=== PATIENT | female | born 1985 | race African-American/Black ===

== ENCOUNTER 2022-09-26 10:27 | Emergency (ER) | payer OTHER ==
[~2022-09-26] VITALS: Ht 167.6 cm; Wt 68.0 kg
[2022-09-26] MEDS ORDERED: ACETAMINOPHEN 325MG TABLET PO STA (12:31)
[2022-09-26] MEDS ORDERED: TETRACAINE 0.5% OPHTH DROPS 4ML RIGHTEYE ONE (12:45)
[2022-09-26] MEDS ORDERED: FLUORESCEIN SODIUM 1MG/STRIP RIGHTEYE ONE (12:45)
[2022-09-26] MEDS ORDERED: BALANCED SALT IRRIG SOLN 15ML IR ONE (12:45)
[2022-09-26] MEDS ORDERED: ACETAMINOPHEN 325MG TABLET PO NR (14:45)
[2022-09-26] MEDS ORDERED: BALANCED SALT IRRIG SOLN 15ML IR NR (14:45)
[2022-09-26] MEDS ORDERED: FLUORESCEIN SODIUM 1MG/STRIP RIGHTEYE NR (14:45)
[2022-09-26] MEDS ORDERED: TETRACAINE 0.5% OPHTH DROPS 4ML RIGHTEYE NR (14:45)
[2022-09-26] MEDS ORDERED: T3 PO (15:55)
[2022-09-26] MEDS ORDERED: DOXY100T28 PO (15:55)
[2022-09-26] MEDS ORDERED: CIPR2.5D13 EACHEYE (15:55)
[2022-09-26 16:53] VITALS: BP 138/87
== END 2022-09-26 16:56 | disposition home or self-care (01) ==
LOC: ER 10:38
DX: S02.2XXA Fracture of nasal bones, initial encounter for closed fracture (principal); S00.83XA Contusion of other part of head, initial encounter; H10.023 Other mucopurulent conjunctivitis, bilateral; H01.003 Unspecified blepharitis right eye, unspecified eyelid; J45.909 Unspecified asthma, uncomplicated; Y08.89XA Assault by other specified means, initial encounter; Y93.89 Activity, other specified; Y92.89 Other specified places as the place of occurrence of the external cause; Y99.8 Other external cause status
CPT/HCPCS: 70480; 81025; 99284

== ENCOUNTER 2023-02-21 15:53 | Emergency (ER) | payer OTHER ==
[~2023-02-21] VITALS: Ht 167.6 cm; Wt 71.0 kg
[~2023-02-21 15:53] MED LIST: CIPR2.5D20 EACHEYE; DOXY100T28 PO; T3 PO
[2023-02-21 16:29] VITALS: BP 104/68; PULSE 100; RESP 16; TEMP 98.9; O2SAT 100
[2023-02-21 16:52] LABS: CLARITY URINE CLEAR (CLEAR); COLOR URINE YELLOW (YELLOW); KETONES URINE NEGATIVE (NEGATIVE); LEUKOCYTE ESTERASE URINE NEGATIVE (NEGATIVE); NITRITE URINE NEGATIVE (NEGATIVE); OCCULT BLOOD URINE 3+ (NEGATIVE); PH URINE 6.5 (4.5-8.0); PROTEIN URINE NEGATIVE (NEGATIVE); SPECIFIC GRAVITY URINE 1.018 (1.005-1.030); UROBILINOGEN URINE 0.2 E.U./dL (0.2-1.0)
[2023-02-21 17:11] LABS: BASOPHILS % 0.7 % (0.0-2.0); EOSINOPHILS % 1.3 % (0.0-5.0); HEMATOCRIT. 39.8 % (36.0-48.0); HEMOGLOBIN. 13.7 g/dL (12.0-16.0); LYMPHOCYTES % 31.1 % (20.0-50.0); MEAN CORPUSCULAR HEMOGLOBIN 34.9 pg (28.0-32.0); MEAN CORPUSCULAR VOLUME 101.2 fL (81.0-99.0); MEAN PLATELET VOLUME 7.5 fl (7.4-10.4); MONOCYTES % 6.9 % (2.0-8.0); PLATELET 241 x1000/uL (130-400); RED BLOOD CELL COUNT 3.93 mill/uL (4.2-5.4); RED CELL DISTRIBUTION WIDTH 13.1 % (11.6-14.6)
[2023-02-21 17:26] LABS: CHLORIDE 107 mEq/L (98-107)
[2023-02-21 17:28] LABS: HCG SCREEN POSITIVE
[2023-02-21] MEDS ORDERED: ACETAMINOPHEN 325MG TABLET PO ONE ×2 (17:45→20:00)
[2023-02-21 17:52] LABS: B-HCG QUANTITATIVE 5463 mIU/mL (<3)
[2023-02-21] MEDS ORDERED: TOPUD PO (18:07)
[2023-02-22] MEDS ORDERED: ONDA4TAB50 PO (16:09)
[2023-02-22] MEDS ORDERED: IBUP-2030 PO (16:09)
[2023-02-22] MEDS ORDERED: OXYC-100 MT (16:26)
== END 2023-02-21 19:59 | disposition home or self-care (01) ==
LOC: ER 15:53
DX: O20.0 Threatened abortion (principal); Z3A.01 Less than 8 weeks gestation of pregnancy
CPT/HCPCS: 36415; 76801; 80053; 81003; 81025; 84702; 84703; 85025; 86850; 86900; 99284

== ENCOUNTER 2023-02-22 12:26 | Emergency (ER) | payer MEDICAID, OTHER ==
[~2023-02-22] VITALS: Ht 167.6 cm; Wt 71.0 kg
[~2023-02-22 12:26] MED LIST changes: +TOPUD PO
[2023-02-22 12:36] VITALS: O2SAT 100
[2023-02-22] MEDS ORDERED: ONDANSETRON 4MG ODT PO ONE (12:45)
[2023-02-22] MEDS ORDERED: KETOROLAC 30MG/ML VIAL IV STA (14:58)
[2023-02-22] MEDS ORDERED: SODIUM CHLORIDE 0.9% 1,000 ML IV ONE (15:00)
[2023-02-22] MEDS ORDERED: ONDANSETRON HCL 4MG/2ML INJ IV ONE (15:45)
[2023-02-22 15:50] LABS: BASOPHILS % 0.2 % (0.0-2.0); HEMATOCRIT. 39.4 % (36.0-48.0); HEMOGLOBIN. 13.8 g/dL (12.0-16.0); MEAN CORPUSCULAR HEMOGLOBIN 35.3 pg (28.0-32.0); MEAN CORPUSCULAR VOLUME 100.9 fL (81.0-99.0); MEAN PLATELET VOLUME 7.9 fl (7.4-10.4); MONOCYTES % 3.4 % (2.0-8.0); NEUTROPHILS % 88.4 % (40.0-76.0); PLATELET 243 x1000/uL (130-400); RED BLOOD CELL COUNT 3.91 mill/uL (4.2-5.4); RED CELL DISTRIBUTION WIDTH 13.1 % (11.6-14.6)
[2023-02-22 15:59] LABS: CHLORIDE 114 mEq/L (98-107)
[2023-02-22] MEDS ORDERED: IBUP-2030 PO (16:09)
[2023-02-22] MEDS ORDERED: ONDA4TAB50 PO (16:09)
[2023-02-22] MEDS ORDERED: OXYC-100 MT (16:26)
[2023-02-22 16:30] LABS: B-HCG QUANTITATIVE 3401 mIU/mL (<3)
[2023-02-22] MEDS ORDERED: OXYCODONE HCL/ACETAMINOPHEN 5/325MG TABLET PO ONE (16:30)
[2023-02-22 16:45] VITALS: BP 119/82; PULSE 76; RESP 16; TEMP 98.4
== END 2023-02-22 17:27 | disposition home or self-care (01) ==
LOC: ER 12:44
DX: O03.9 Complete or unspecified spontaneous abortion without complication (principal); Z3A.01 Less than 8 weeks gestation of pregnancy; Z79.899 Other long term (current) drug therapy
CPT/HCPCS: 99285; 96374; 76830; 76856; 96361; 96375; 80053; 84702; 85025; 86850; 86900; 86901; 36415; J1885; J2405; J7030

== ENCOUNTER 2023-04-17 10:17 | Emergency (ER) | payer MEDICAID ==
[~2023-04-17] VITALS: Ht 152.4 cm; Wt 68.5 kg
[~2023-04-17 10:17] MED LIST changes: +IBUP-2030 PO; +ONDA4TAB50 PO; +OXYC-100 MT
[2023-04-17 10:28] VITALS: BP 127/73; PULSE 57; TEMP 98.1; O2SAT 100
[2023-04-17 11:06] LABS: BASOPHILS % 0.2 % (0.0-2.0); HEMATOCRIT. 44.6 % (36.0-48.0); HEMOGLOBIN. 15.5 g/dL (12.0-16.0); LYMPHOCYTES % 9.6 % (20.0-50.0); MEAN CORPUSCULAR HGB CONC 34.8 g/dL (31.0-37.0); MEAN CORPUSCULAR VOLUME 97.8 fL (81.0-99.0); MEAN PLATELET VOLUME 8.4 fl (7.4-10.4); NEUTROPHILS % 87.2 % (40.0-76.0); PLATELET 245 x1000/uL (130-400); RED BLOOD CELL COUNT 4.57 mill/uL (4.2-5.4); RED CELL DISTRIBUTION WIDTH 12.9 % (11.6-14.6); WHITE BLOOD COUNT 9.1 x1000/uL (4.5-11.0)
[2023-04-17 11:10] LABS: CHLORIDE 105 mEq/L (98-107); INDEX HEMOLYSI 1 (1-3); INDEX ICTERIC 1 (1-4); INDEX LIPEMIC 1 (1-3); POTASSIUM 3.4 mEq/L (3.5-5.1); SODIUM 139 mEq/L (136-145)
[2023-04-17 11:31] LABS: ALANINE AMINOTRANSFERASE 29 IU/L (13-61); ALBUMIN 4.6 g/dL (3.4-5.0); ASPARTATE AMINOTRANSFERASE 19 IU/L (15-37); BILIRUBIN TOTAL 1.8 mg/dL (0.1-1.0); CALCIUM 9.6 mg/dL (8.5-10.1); CARBON DIOXIDE 25 mEq/L (21-32); CREATININE 0.9 mg/dL (0.6-1.3); GLUCOSE 134 mg/dL (70-105); PROTEIN TOTAL 8.6 g/dL (6.0-8.3); UREA NITROGEN BLOOD 14 mg/dL (7-21)
[2023-04-17] MEDS ORDERED: ONDANSETRON 4MG ODT PO ONE (12:30)
[2023-04-17] MEDS: ONDANSETRON 4MG ODT PO NR ×2 (14:12→15:48)
[2023-04-17 17:08] LABS: CLARITY URINE CLOUDY (CLEAR); COLOR URINE DARK YELLOW (YELLOW); GLUCOSE URINE NEGATIVE (NEGATIVE); KETONES URINE 2+ (NEGATIVE); LEUKOCYTE ESTERASE URINE NEGATIVE (NEGATIVE); NITRITE URINE NEGATIVE (NEGATIVE); OCCULT BLOOD URINE 3+ (NEGATIVE); PH URINE 5.5 (4.5-8.0); PROTEIN URINE 3+ (NEGATIVE); SPECIFIC GRAVITY URINE 1.034 (1.005-1.030)
[2023-04-17 17:11] LABS: BACTERIA URINE 1+; SQUAMOUS EPITHELIAL CELL URINE 2+ /lpf (RARE/1+); YEAST URINE NONE SEEN
== END 2023-04-17 16:27 | disposition left against medical advice (07) ==
LOC: ER 10:17
DX: R11.2 Nausea with vomiting, unspecified (principal); I49.9 Cardiac arrhythmia, unspecified
CPT/HCPCS: 99284; 80053; 81003; 81025; 83690; 85025; 36415; 93005; Q0162

== ENCOUNTER 2023-07-19 15:22 | Emergency (ER) | payer MEDICAID ==
[~2023-07-19] VITALS: Ht 167.6 cm; Wt 71.0 kg
[2023-07-19 15:30] VITALS: PULSE 119
[2023-07-19 15:36] VITALS: BP 138/67; RESP 18; TEMP 98.1; O2SAT 99
[2023-07-19 16:02] LABS: BASOPHILS % 0.3 % (0.0-2.0); HEMATOCRIT. 45.2 % (36.0-48.0); HEMOGLOBIN. 15.6 g/dL (12.0-16.0); LYMPHOCYTES % 12.6 % (20.0-50.0); MEAN CORPUSCULAR HEMOGLOBIN 33.7 pg (28.0-32.0); MEAN CORPUSCULAR HGB CONC 34.5 g/dL (31.0-37.0); MEAN CORPUSCULAR VOLUME 97.8 fL (81.0-99.0); MEAN PLATELET VOLUME 8.3 fl (7.4-10.4); MONOCYTES % 7.5 % (2.0-8.0); NEUTROPHILS % 79.6 % (40.0-76.0); PLATELET 275 x1000/uL (130-400); RED BLOOD CELL COUNT 4.62 mill/uL (4.2-5.4); RED CELL DISTRIBUTION WIDTH 12.7 % (11.6-14.6); WHITE BLOOD COUNT 14.2 x1000/uL (4.5-11.0)
[2023-07-19 16:27] LABS: ALANINE AMINOTRANSFERASE 25 IU/L (10-49); ALBUMIN 5.1 g/dL (3.2-4.8); ASPARTATE AMINOTRANSFERASE 29 IU/L (<34); BILIRUBIN TOTAL 1.6 mg/dL (0.1-1.0); CALCIUM 9.9 mg/dL (8.7-10.4); CARBON DIOXIDE 28 mEq/L (21-32); CHLORIDE 100 mEq/L (98-107); CREATININE 1.3 mg/dL (0.6-1.0); GLUCOSE 110 mg/dL (70-105); POTASSIUM 3.4 mEq/L (3.5-5.1); PROTEIN TOTAL 8.7 g/dL (6.0-8.3); SODIUM 138 mEq/L (136-145); UREA NITROGEN BLOOD 23 mg/dL (9-23)
[2023-07-19 16:34] LABS: CLARITY URINE CLOUDY (CLEAR); COLOR URINE DARK YELLOW (YELLOW); GLUCOSE URINE NEGATIVE (NEGATIVE); KETONES URINE 2+ (NEGATIVE); LEUKOCYTE ESTERASE URINE NEGATIVE (NEGATIVE); NITRITE URINE NEGATIVE (NEGATIVE); OCCULT BLOOD URINE 2+ (NEGATIVE); PH URINE 5.5 (4.5-8.0); PROTEIN URINE 2+ (NEGATIVE); SPECIFIC GRAVITY URINE 1.035 (1.005-1.030)
[2023-07-19 16:57] LABS: BACTERIA URINE NONE SEEN; HYALINE CASTS URINE 0-5 /lpf; SQUAMOUS EPITHELIAL CELL URINE 2+ /lpf (RARE/1+); WBC URINE 0-2 /hpf (0-2)
[2023-07-19] MEDS ORDERED: FAMOTIDINE 20MG TABLET PO ONE (19:00)
[2023-07-19] MEDS ORDERED: MAGNESIUM/ALUMINUM HYDROXIDE/SIMETHICONE 30ML UDC PO ONE (19:00)
[2023-07-19] MEDS ORDERED: ONDANSETRON 4MG ODT PO ONE (19:00)
[2023-07-19] MEDS ORDERED: FAMO-135 MT (20:47)
[2023-07-19] MEDS ORDERED: MAG-55 MT (20:47)
[2023-07-19] MEDS ORDERED: ONDA4TAB50 MT (20:47)
== END 2023-07-20 00:21 | disposition home or self-care (01) ==
LOC: ER 15:22
DX: R11.2 Nausea with vomiting, unspecified (principal); Z88.6 Allergy status to analgesic agent; Z79.899 Other long term (current) drug therapy
CPT/HCPCS: 99284; 80053; 81003; 81025; 83690; 85025; 36415; 93005; Q0162

== ENCOUNTER 2024-03-14 04:27 | Emergency (ER) | payer MEDICAID ==
[~2024-03-14] VITALS: Ht 170.2 cm; Wt 73.0 kg
[~2024-03-14 04:27] MED LIST changes: +FAMO-135 MT; +MAG-55 MT; +ONDA4TAB50 MT
[2024-03-14 04:28] VITALS: O2SAT 99
[2024-03-14] MEDS ORDERED: ACETAMINOPHEN 325MG TABLET PO ONE (05:45)
[2024-03-14] MEDS ORDERED: ONDANSETRON 4MG ODT PO ONE (07:45)
[2024-03-14] MEDS ORDERED: HYDROCODONE/ACETAMINOPHEN 5/325MG TABLET PO ONE (08:00)
[2024-03-14 08:15] VITALS: TEMP 97.8
[2024-03-14] MEDS: HYDROCODONE/ACETAMINOPHEN 5/325MG TABLET PO NR (08:15)
[2024-03-14] MEDS: ACETAMINOPHEN 325MG TABLET PO NR (08:15)
[2024-03-14] MEDS: ONDANSETRON 4MG ODT PO NR (08:15)
[2024-03-14 09:07] LABS: BASOPHILS % 0.2 % (0.0-2.0); DIFFERENTIAL COMMENT 0; HEMATOCRIT. 40.6 % (36.0-48.0); HEMOGLOBIN. 13.8 g/dL (12.0-16.0); LYMPHOCYTES % 9.8 % (20.0-50.0); MEAN CORPUSCULAR HEMOGLOBIN 34.9 pg (28.0-32.0); MEAN CORPUSCULAR HGB CONC 34.1 g/dL (31.0-37.0); MEAN CORPUSCULAR VOLUME 102.4 fL (81.0-99.0); MEAN PLATELET VOLUME 7.9 fl (7.4-10.4); MONOCYTES % 5.1 % (2.0-8.0); NEUTROPHILS % 84.9 % (40.0-76.0); PLATELET 221 x1000/uL (130-400); RED BLOOD CELL COUNT 3.97 mill/uL (4.2-5.4); RED CELL DISTRIBUTION WIDTH 13.1 % (11.6-14.6); WHITE BLOOD COUNT 12.5 x1000/uL (4.5-11.0)
[2024-03-14 09:12] LABS: CHLORIDE 107 mEq/L (98-107); SODIUM 139 mEq/L (136-145)
[2024-03-14 09:13] LABS: CALCIUM 9.4 mg/dL (8.7-10.4); CARBON DIOXIDE 26 mEq/L (21-32)
[2024-03-14 09:18] LABS: CREATININE 0.8 mg/dL (0.6-1.0); GLUCOSE 105 mg/dL (70-105); UREA NITROGEN BLOOD 6 mg/dL (9-23)
[2024-03-14 09:31] LABS: HCG SCREEN NEGATIVE
[2024-03-14] MEDS: AMPICILLIN SOD/SULBACTAM NA 3 G in SODIUM CHLORIDE 0.9% 100 ML IV SCH (13:10)
[2024-03-14] MEDS: MORPHINE SULFATE 4 MG/ML INJ (FOR IV/IM USE) IV ONE (13:29)
[2024-03-14 14:00] VITALS: BP 118/75; PULSE 83; RESP 20; O2SAT 97
== END 2024-03-14 14:08 | disposition short-term general hospital (02) ==
LOC: ER 04:40
DX: S02.32XA Fracture of orbital floor, left side, initial encounter for closed fracture (principal); S02.31XA Fracture of orbital floor, right side, initial encounter for closed fracture; F12.10 Cannabis abuse, uncomplicated; Z79.899 Other long term (current) drug therapy; Z88.6 Allergy status to analgesic agent; Y08.89XA Assault by other specified means, initial encounter; Y93.89 Activity, other specified; Y92.89 Other specified places as the place of occurrence of the external cause; Y99.8 Other external cause status
CPT/HCPCS: 80048; 84703; 85025; 86850; 86900; 86901; 87040; 36415; 73130; 70450; 70486; 72125; 96365; 96375; 99291; Q0162; J0295; J2270; J7050; Z7610 ×3

== ENCOUNTER 2024-05-25 05:26 | Emergency (ER) | payer MEDICAID ==
[~2024-05-25] VITALS: Ht 160 cm; Wt 70.9 kg
[2024-05-25 05:45] VITALS: O2SAT 100
[2024-05-25 06:29] LABS: BASOPHILS % 0.5 % (0.0-2.0); DIFFERENTIAL COMMENT 0; HEMATOCRIT. 42.2 % (36.0-48.0); HEMOGLOBIN. 14.7 g/dL (12.0-16.0); LYMPHOCYTES % 9.5 % (20.0-50.0); MEAN CORPUSCULAR HEMOGLOBIN 35.3 pg (28.0-32.0); MEAN CORPUSCULAR HGB CONC 34.8 g/dL (31.0-37.0); MEAN CORPUSCULAR VOLUME 101.4 fL (81.0-99.0); MEAN PLATELET VOLUME 8.1 fl (7.4-10.4); MONOCYTES % 3.3 % (2.0-8.0); NEUTROPHILS % 86.7 % (40.0-76.0); PLATELET 227 x1000/uL (130-400); RED BLOOD CELL COUNT 4.16 mill/uL (4.2-5.4); WHITE BLOOD COUNT 9.2 x1000/uL (4.5-11.0)
[2024-05-25 06:39] LABS: CHLORIDE 109 mEq/L (98-107); POTASSIUM 3.4 mEq/L (3.5-5.1); SODIUM 143 mEq/L (136-145)
[2024-05-25 06:40] LABS: CARBON DIOXIDE 23 mEq/L (21-32)
[2024-05-25 06:41] LABS: CALCIUM 10.2 mg/dL (8.7-10.4)
[2024-05-25 06:45] LABS: GLUCOSE 121 mg/dL (70-105); UREA NITROGEN BLOOD 13 mg/dL (9-23)
[2024-05-25 08:00] LABS: ALANINE AMINOTRANSFERASE 19 IU/L (10-49)
[2024-05-25 08:01] LABS: ALBUMIN 5.2 g/dL (3.2-4.8); ASPARTATE AMINOTRANSFERASE 30 IU/L (<34); BILIRUBIN DIRECT 0.5 mg/dL (<=3.0); BILIRUBIN TOTAL 1.7 mg/dL (0.1-1.0); PROTEIN TOTAL 8.1 g/dL (6.0-8.3)
[2024-05-25] MEDS: LACTATED RINGERS 1,000 ML IV SCH (08:01)
[2024-05-25] MEDS: ACETAMINOPHEN 325MG TABLET PO ONE (08:06)
[2024-05-25] MEDS: ONDANSETRON HCL 4MG/2ML INJ IV ONE (08:06)
[2024-05-25 08:08] LABS: HCG SCREEN NEGATIVE
[2024-05-25] MEDS ORDERED: CEFTRIAXONE 1GM/50ML 50 ML IV ONE (08:15)
[2024-05-25] MEDS ORDERED: ONDA-239 PO (09:17)
[2024-05-25 09:31] VITALS: BP 118/85; PULSE 81; RESP 18; TEMP 37.16964; O2SAT 100
== END 2024-05-25 09:35 | disposition home or self-care (01) ==
LOC: ER 05:26
DX: R10.30 Lower abdominal pain, unspecified (principal); R20.0 Anesthesia of skin; E80.7 Disorder of bilirubin metabolism, unspecified; F12.10 Cannabis abuse, uncomplicated; Z79.899 Other long term (current) drug therapy; Z88.6 Allergy status to analgesic agent
CPT/HCPCS: 99285; 74176; 96374; 96361; 80076; 80048; 84703; 83690; 85025; 87040; 36415; J2405